=== PATIENT | male | born 1980 | race Caucasian/White ===

== ENCOUNTER 2021-01-24 20:40 | Emergency (ER) | payer MEDICAID ==
[~2021-01-24] VITALS: Ht 165.1 cm; Wt 74.8 kg
--- NOTE | 2021-01-24 20:43 | NUR ---
Placed in room 5 . Placed on cardiac catheterization technician, blood pressure machine and pulse oximeter. To gown for exam. Side rails up. Report given to Sandy KHALIL.
[2021-01-24 20:45] VITALS: BP_SYST 155
--- NOTE | 2021-01-24 21:00 | NUR ---
PATIENT AAOX4 AND AMBULATORY FROM HOME C/O PALPITATIONS AND ANXIETY. CURRENTLY STATING HAVING NO PAIN. VSS. DENIES ANY SOB/N/V/D. PER PATIENT STATED HE HAS BEEN HAVING STRESS AT HOME.
--- NOTE | 2021-01-24 21:44 | NUR ---
DR. MALLORY AT [facility] WITH RN FOR SERBIAN INTERPRETATION AND EVALUATION.
--- NOTE | 2021-01-24 21:59 | NUR ---
PT AMBULATED TO RESTROOM WITHOUT DIFFICULTIES.
[2021-01-24 22:10] VITALS: BP_SYST 135
--- NOTE | 2021-01-24 22:10 | NUR ---
Patient given written and verbal discharge instructions and verbalizes understanding. DR. MOHAMUD LLOYD MD discussed with patient the results and treatment provided. Patient in stable condition. ID arm band removed. Patient educated on pain management and to follow up with PMD. Pain Scale 0/10 Opportunity for questions provided and answered. Medication side effect fact sheet provided.
== END 2021-01-24 22:10 | disposition home or self-care (01) ==
LOC: SED 20:40
DX: R00.2 Palpitations (principal); F41.9 Anxiety disorder, unspecified
CPT/HCPCS: 93005; 99283